=== PATIENT | female | born 1980 | race American Indian/Alaskan Native ===

== ENCOUNTER 2018-03-27 14:06 | Emergency (ER) | payer MEDICAID, OTHER ==
[2018-03-27 14:07] VITALS: BMI 47.2
[2018-03-27 14:12] VITALS: TEMP 98.1
--- NOTE | 2018-03-27 14:30 | ED PDOC ---
Lower Extremity Pain/Injury Time Seen by Provider: 03/27/18 14:14 Chief Complaint (Nursing): Lower Extremity Problem/Injury Chief Complaint (Provider): Right upper thigh pain History Per: Patient History/Exam Limitations: no limitations Onset/Duration Of Symptoms: Days (Yesterday) Current Symptoms Are (Timing): Still Present Additional Complaint(s): 37 year old female presents to the ED complaining of right upper thigh pain since yesterday. Patient reports she was walking around yesterday when she felt a sharp pain in her upper thigh. She states she took Naproxen 500mg this morning at 06:00 with no relief. Patient denies bruising, redness, and lesions. PMD: Catalina Arana Past Medical History Reviewed: Historical Data, Nursing Documentation, Vital Signs Vital Signs: Last Vital Signs Temp 98.1 F 03/27/18 14:11 Pulse 83 03/27/18 14:11 Resp 20 03/27/18 14:11 BP 132/86 03/27/18 14:11 Pulse Ox 100 03/27/18 14:11 - Medical History PMH: Arthritis, Depression, Pneumonia (AGE 13) Denies: Chronic Kidney Disease - Surgical History Surgical History: No Surg Hx - Family History Family History: States: Unknown Family Hx - Immunization History Hx Tetanus Toxoid Vaccination: No Hx Influenza Vaccination: No Hx Pneumococcal Vaccination: No - Home Medications Home Medications: Ambulatory Orders Medication Instructions Recorded Bupropion HCl [Wellbutrin Sr] 150 mg PO DAILY 01/11/17 Methylphenidate HCl [Concerta] 27 mg PO DAILY 01/11/17 Sertraline [Zoloft] 100 mg PO DAILY 01/11/17 Cyclobenzaprine [Cyclobenzaprine 10 mg PO Q8H #20 tab 03/27/18 HCl] Naproxen [Naprosyn] 500 mg PO BID PRN #20 tablet 03/27/18 Naproxen [Naprosyn] 500 mg PO BID PRN #20 tablet 03/27/18 - Allergies Allergies/Adverse Reactions: Allergies Allergy/AdvReac Type Severity Reaction Status Date / Time No Known Allergies Allergy Verified 03/27/18 14:09 Review of Systems ROS Statement: Except As Marked, All Systems Reviewed And Found Negative Musculoskeletal: Positive for: Other (Right upper thigh pain) Skin: Negative for: Lesions (right upper thigh), Bruising (right upper thigh) Physical Exam - Reviewed Nursing Documentation Reviewed: Yes Vital Signs Reviewed: Yes - Physical Exam Appears: Positive for: Well, Non-toxic, No Acute Distress Head Exam: Positive for: ATRAUMATIC, NORMAL INSPECTION, NORMOCEPHALIC Skin: Positive for: Normal Color Eye Exam: Positive for: Normal appearance ENT: Positive for: Normal ENT Inspection Neck: Positive for: Normal Cardiovascular/Chest: Negative for: Bradycardia, Tachycardia Respiratory: Negative for: Respiratory Distress Extremity: Positive for: Normal ROM. Negative for: Deformity, Swelling - ECG O2 Sat by Pulse Oximetry: 100 (RA) Pulse Ox Interpretation: Normal Medical Decision Making Medical Decision Making: Initial Impression: Right upper thigh pain Initial Plan: Cyclobenzaprine 10mg pO Right hip X-ray Pt reports feeling slightly better on re-evaluation. XR without acute findings Scribe Attestation: Documented by Grant Luna acting as a scribe for Kristal ORDONEZ. Provider Scribe Attestation: All medical record entries made by the Scribe were at my direction and personally dictated by me. I have reviewed the chart and agree that the record accurately reflects my personal performance of the history, physical exam, medical decision making, and the department course for this patient. I have also personally directed, reviewed, and agree with the discharge instructions and disposition. Disposition - Clinical Impression Clinical Impression: Arthritis - Patient ED Disposition Is Patient to be Admitted: No Counseled Patient/Family Regarding: Diagnosis, Need For Followup, Rx Given - Disposition Referrals: [facility] [Outside] David Hannon MD [Staff Provider] - Disposition: Routine/Home Disposition Time: 15:49 Condition: GOOD Prescriptions: Cyclobenzaprine [Cyclobenzaprine HCl] 10 mg PO Q8H #20 tab Naproxen [Naprosyn] 500 mg PO BID PRN #20 tablet PRN Reason: Pain Naproxen [Naprosyn] 500 mg PO BID PRN #20 tablet PRN Reason: Pain Instructions: Arthritis and Exercise Forms: [employer] (Citizen [place])
--- NOTE | 2018-03-27 15:25 | RAD ---
Date of service: 03/27/2018 PROCEDURE: HISTORY: pain COMPARISON: None TECHNIQUE: AP pelvis and frog's leg view. FINDINGS: No fracture or lytic lesion. Fairly symmetrical bulbous prominence of each inferior pubic ramus probably developmental variant. Bilateral superolateral hip joint space narrowing with mild superolateral acetabular spurring right side slightly greater than left. Inferior right sacroiliac joint mild sclerotic arthrosis. IMPRESSION: No fracture or lytic lesion. Arthritic changes as above.
[2018-03-27 15:53] VITALS: BP 136/79; PULSE 79; RESP 15; O2SAT 97
== END 2018-03-27 15:53 | disposition home or self-care (01) ==
LOC: H.ER 14:06
DX: M19.90 Unspecified osteoarthritis, unspecified site (principal); Z86.59 Personal history of other mental and behavioral disorders